=== PATIENT | male | born 1985 | race Caucasian/White ===

== ENCOUNTER 2017-10-30 00:21 | Emergency (ER) | payer SELFPAY ==
[2017-10-30] VITALS (7 sets, daily range): BP systolic 92–134; BP diastolic 53–76; PULSE 62–88; RESP 16–20; TEMP 98.8; O2SAT 98–100
[~2017-10-30] VITALS: Ht 160 cm; Wt 57.0 kg
[~2017-10-30 00:21] MED LIST: ALPR.5 PO; ASPI-183 PO; ATOR10TA15 PO; HYDR-3516 PO; KEPP750T PO; SERT-129 PO
[2017-10-30] MEDS ORDERED: NS + KCL 20 MEQ INJ 1,000 ML IV SCH (01:15)
[2017-10-30] MEDS ORDERED: MORPHINE SULFATE 2 MG/ML INJ IV PUSH ONE (01:15)
[2017-10-30] MEDS ORDERED: AMPICILLIN-SULBACTAM INJ 3 GM in SODIUM CHLORIDE 0.9% INJ 100 ML IV ONE (01:15)
[2017-10-30] MEDS ORDERED: ONDANSETRON HCL 4 MG/2 ML VIAL IV PUSH ONE (01:15)
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
[2017-10-30] MEDS ORDERED: HYDR-3366 PO (02:03)
[2017-10-30 02:10] LABS: AUTOMATED NEUTROPHIL # 5.1 TH/MM3 (1.8-7.7); BASOPHIL % 0.3 % (0.0-2.0); EOSINOPHIL # 0.1 TH/MM3 (0-0.4); EOSINOPHIL % 1.8 % (0.0-4.0); HEMOGLOBIN 14.5 GM/DL (13.0-17.0); LYMPH % 25.7 % (9.0-44.0); MEAN CORPUSCULAR HEMOGLOBIN 33.6 PG (27.0-34.0); MEAN CORPUSCULAR HGB CONC 34.6 % (32.0-36.0); MEAN PLATELET VOLUME 9.1 FL (7.0-11.0); MONOCYTE # 0.5 TH/MM3 (0-0.9); NEUT % 66.2 % (16.0-70.0); PLATELET COUNT 235 TH/MM3 (150-450); RED BLOOD COUNT 4.33 MIL/MM3 (4.50-5.90); RED CELL DISTRIBUTION WIDTH 12.9 % (11.6-17.2); WHITE BLOOD COUNT 7.6 TH/MM3 (4.0-11.0)
[2017-10-30 02:21] LABS: PROTHROMBIN TIME - PATIENT 10.2 SEC (9.8-11.6)
[2017-10-30 02:30] LABS: BICARBONATE 30.8 MEQ/L (21.0-32.0); CALCIUM 8.6 MG/DL (8.5-10.1); CREATININE 0.8 MG/DL (0.60-1.30)
== END 2017-10-30 05:15 | disposition short-term general hospital (02) ==
LOC: NEPC 00:21
DX: S02.411B LeFort I fracture, initial encounter for open fracture (principal); F41.9 Anxiety disorder, unspecified; F31.9 Bipolar disorder, unspecified; E78.00 Pure hypercholesterolemia, unspecified; R56.9 Unspecified convulsions; Y08.09XA Assault by strike by other specified type of sport equipment, initial encounter; Z86.73 Personal history of transient ischemic attack (TIA), and cerebral infarction without residual deficits; Z79.82 Long term (current) use of aspirin; Z79.899 Other long term (current) drug therapy
CPT/HCPCS: 70450; 70486; 80048; 80307; 85025; 85610; 85730; 96365; 96375; 96376; 99285; J0295; J2270; J2405; J3480